=== PATIENT | female | born 1980 | race African-American/Black ===

== ENCOUNTER 2018-04-13 16:28 | Emergency (ER) | payer MEDICAID ==
[~2018-04-13] VITALS: Ht 167.6 cm; Wt 100.0 kg
[~2018-04-13 16:28] MED LIST: PROIN3 IH
[2018-04-13 16:51] VITALS: BP 125/99
[2018-04-13] MEDS ORDERED: ALBUTEROL (0.083%) 2.5MG/3ML NEB HHN STA (19:00)
[2018-04-13] MEDS ORDERED: IPRATROPIUM BROMIDE (0.02%) 0.5MG/2.5ML NEB HHN STA (19:00)
[2018-04-13] MEDS ORDERED: PREDNISONE 20MG TABLET PO STA (19:00)
== END 2018-04-13 21:09 | disposition home or self-care (01) ==
LOC: ER 17:44
DX: J45.901 Unspecified asthma with (acute) exacerbation (principal); I10 Essential (primary) hypertension; F17.210 Nicotine dependence, cigarettes, uncomplicated; Z71.6 Tobacco abuse counseling
CPT/HCPCS: 71045; 94640; 99283; 99406; J7512; J7611